=== PATIENT | female | born 1955 | race Asian ===

== ENCOUNTER 2016-12-10 01:04 | Emergency (ER) | payer OTHER ==
[~2016-12-10] VITALS: Ht 152.4 cm; Wt 71.0 kg
[2016-12-10 01:09] VITALS: Ht 152.4 cm; Wt 71.0 kg
[2016-12-10] MEDS ORDERED: ONDANSETRON 4 MG INJ IV STA (02:06)
--- NOTE | 2016-12-10 02:06 | ERD ---
ER Documentation Chief Complaint Date/Time DATE: 12/10/16 TIME: 02:04 Chief Complaint c/o throat and tongue numbness x 1 hr. May have ingested house freshner. HPI This 7-year-old female presents to emergency department today with daughter for translation reporting that she accidently drank small amount of room diffuser liquid about an hour ago. pt reports numb lips and tongue, FELIX, and oral swelling. vomiting x 1 patient reports that her mouth and tongue feels swollen, reports her lips feel swollen, daughter reports that her lips are edematous. Patient speech is clear and soft, respirations even and unlabored, there is no obvious tongue swelling. No acute distress. ROS All systems reviewed and are negative except as per history of present illness. Allergies Allergies: Coded Allergies: No Known Allergy (Unverified , 01/05/14) PMhx/Soc History of Surgery: Yes (colostomy, EDUARDO , Colon cancer) Anesthesia Reaction: No Hx Neurological Disorder: No Hx Respiratory Disorders: No Hx Cardiac Disorders: No Hx Psychiatric Problems: No Hx Miscellaneous Medical Probl: No Hx Alcohol Use: No Hx Substance Use: No Hx Tobacco Use: No Smoking Status: Never smoker Physical Exam Vitals Vital Signs Date Time Temp Pulse Resp B/P Pulse Ox O2 Delivery O2 Flow Rate FiO2 12/10/16 01:09 98.3 81 20 190/101 97 Vitals stable, triage notes reviewed Physical Exam Const: Well-nourished well-hydrated no acute disease Head: Atraumatic Eyes: Normal Conjunctiva, PERRLA, EOMI ENT: Normal External Ears, Nose and Mouth. Oral mucosa moist, no obvious edema, lips are without swelling, Neck: Full range of motion..~ No meningismus. Resp: Clear to auscultation bilaterally no rales wheezes or rhonchi Cardio: Regular rate and rhythm, no murmurs Abd: Soft, non tender, non distended. Normal bowel sounds Skin: No petechiae or rashes Back: No midline or flank tenderness Ext: No cyanosis, or edema Neur: Awake and alert Psych: Normal Mood and Affect Results 24 hrs Current Medications Medications (Trade) Dose Ordered Sig/Julianne Route PRN Reason Start Time Stop Time Status Last Admin Dose Admin Sodium Chloride (NS) 500 ml @ 500 mls/hr Q1H ONCE IV 12/10/16 02:30 12/10/16 03:29 DC 12/10/16 02:46 Diphenhydramine HCl (Benadryl) 25 mg ONCE ONCE IV 12/10/16 02:30 12/10/16 02:31 DC 12/10/16 02:30 Ondansetron HCl (Zofran Inj) 4 mg ONCE STAT IV 12/10/16 02:06 12/10/16 02:10 DC 12/10/16 02:39 Methylprednisolone Sodium Succinate (Solu-Medrol) 40 mg ONCE ONCE IM 12/10/16 02:30 12/10/16 02:31 DC 12/10/16 02:38 Famotidine (Pepcid Iv) 20 mg ONCE ONCE IV 12/10/16 02:30 12/10/16 02:31 DC 12/10/16 02:39 Procedures/MDM This 7-year-old female presents to emergency department after accidentally drinking liquid from a room diffuser. Diffuser spilt onto canned beverage that she was drinking patient ingested less than 1 mm of solution reports a burning tingling numbness on her tongue and lips, reports headache, tightness in her chest. Low suspicion for anaphylaxis reaction regardless patient treated with 60 mg of IV Solu-Medrol 500 mg of normal saline, IV Pepcid, and IV Benadryl. Patient reassessed after an hour reports improvement of symptoms. Patient no longer feels a swelling in her mouth lips or tongue. States she has a bitter taste in her mouth. Patient is appropriate to be discharged with continue Benadryl use. I feel the patient is stable for discharge at this time with outpatient management by primary care physician return to emergency department for lip swelling, tongue swelling, difficulty swallowing saliva,, shortness of. I have discussed results, examination findings, the treatment plan with the patient and family present prior to discharge. Indications for emergent reevaluation, side effects of medication were also discussed. All questions were answered. Patient verbalizes understanding and agrees with plan of care. Departure Diagnosis: Primary Impression: Accidental ingestion of substance Encounter type: initial encounter Injury intent: accidental or unintentional Qualified Code: T65.91XA - Accidental ingestion of substance, accidental or unintentional, initial encounter Condition: Good Patient Instructions: Allergic Reaction, Insect (Local) () Additional Instructions: Thank you for for coming to [facility] for your care today. Please ask your nurse or provider if you have questions about your care today and do not leave until all your questions have been answered. Please use any medications given as directed and follow-up with your doctor (or the doctor you were referred to) in the next 2-3 days. If you do not have a primary care doctor you may follow up at the [facility] (listed below). You may also use motrin and tylenol as needed for fever and/or pain unless instructed otherwise by your provider or nurse. Indications for more urgent follow-up have been discussed, but you may return to the Emergency Department at ANY time for any worrisome or worsening symptoms. If you have abdominal pain, please know that no test or exam you received is perfect and you should follow up within 8 hours for continued pain. If you had any imaging studies today, such as an X-Ray or CT Scan, these studies will be reviewed later by a radiologist. You will be called if there are important findings that were not identified today, so make sure the contact information you provided at registration is correct. If you received any narcotic pain control medicine today, such as Vicodin, Morphine or Dilaudid, your coordination and judgment may be affected for a number of hours. Please do not drive or operate heavy machinery, and you may want someone to assist you at home. If you were given a prescription for narcotic medication, be aware that it is very addictive- use sparingly and only if necessary. DAVID PHELPS Dec 10, 2016 02:06
[2016-12-10] MEDS ORDERED: METHYLPREDNISOLONE 40 MG INJ IM ONE (02:30)
[2016-12-10] MEDS ORDERED: SOD CHLORIDE 0.9% 500 ML IV ONE (02:30)
[2016-12-10] MEDS ORDERED: FAMOTIDINE 20 MG INJ IV ONE (02:30)
[2016-12-10] MEDS ORDERED: DIPHENHYDRAMINE 50 MG INJ IV ONE (02:30)
[2016-12-10] MEDS ORDERED: BEN25 PO (04:11)
[2016-12-10 04:24] VITALS: BP 129/90; PULSE 80; RESP 17; TEMP 98.5
== END 2016-12-10 04:29 | disposition home or self-care (01) ==
LOC: FTE 01:04
DX: T65.91XA Toxic effect of unspecified substance, accidental (unintentional), initial encounter (principal); Z85.038 Personal history of other malignant neoplasm of large intestine
CPT/HCPCS: 96372; 96374; 96375; J1200; J2405; J2920; J7040; Z7502; Z7610